=== PATIENT | female | born 1935 | race Two or more races ===

== ENCOUNTER 2020-12-19 16:09 | Outpatient (CLI) | payer OTHER | END 2020-12-19 16:28 | disposition home or self-care (01) | LOC: RAD 16:09 | PROVIDERS: ATTEND Family Medicine | DX: R07.89 Other chest pain (principal) ==

== ENCOUNTER 2021-06-20 10:25 | Outpatient (CLI) | payer OTHER | END 2021-06-20 11:19 | disposition home or self-care (01) | LOC: RAD 10:25 | PROVIDERS: ATTEND Family Medicine | DX: R10.13 Epigastric pain (principal); M54.89 Other dorsalgia ==